=== PATIENT | female | born 1950 | race Caucasian/White ===

== ENCOUNTER 2016-12-21 08:23 | Day surgery (SDC) | payer OTHER ==
[~2016-12-21] VITALS: Ht 165.1 cm; Wt 186.5 kg
[~2016-12-21 08:23] MED LIST: ATARAX10 MG PO; ATIVAN0.5 MG PO; AVASTIN400 MG/16 IJ; AZOR 5/40 MG1 TABLET PO; BYSTOLIC5 MG PO; CALCIUM 500 +1 EACH PO; CALCIUM 600 MG1 EACH PO; CENTRATEX PO; CINNAMON500 MG PO; COLESTID1 GM PO; ERYTHROMYCIN 2% TP; FLEXERIL10 MG PO; GLUCOPHAGE500 MG PO; LEVBID0.375 MG PO; LEVO-T50 MCG PO; LIPITOR40 MG PO; NEXIUM40 MG PO; PERCOCET 10/1 TABLET PO; PERCOCET 5/31 TABLET PO; PRESERVISION A1 EAC2 PO; PROMETHAZINE HC25 M1 PO; PROVENTIL,2.5 MG/3 M IH; SINGULAIR10 MG PO; STIOLTO RESPIMAT4 GM IH; VALTREX1000 MG PO; VENTOLIN HFA18 GM IH; VITAMIN D31000 UNI2 PO
[2016-12-21 09:24] VITALS: BP 144/67
[2016-12-21] MEDS ORDERED: PERCOCET 5/31 TABLET PO (12:18)
[2016-12-21 13:40] VITALS: BP 152/66
[2016-12-21 14:37] VITALS: BP 148/65
[2016-12-21 15:05] VITALS: BP 132/60
== END 2016-12-21 15:17 | disposition home or self-care (01) ==
LOC: SDC 08:23
DX: K66.0 Peritoneal adhesions (postprocedural) (postinfection) (principal); L57.0 Actinic keratosis; L11.8 Other specified acantholytic disorders; R10.13 Epigastric pain; G89.29 Other chronic pain; R11.2 Nausea with vomiting, unspecified; E66.01 Morbid (severe) obesity due to excess calories; Z68.45 Body mass index [BMI] 70 or greater, adult; E11.9 Type 2 diabetes mellitus without complications; K21.9 Gastro-esophageal reflux disease without esophagitis; I10 Essential (primary) hypertension; J45.909 Unspecified asthma, uncomplicated; E07.9 Disorder of thyroid, unspecified; Z88.0 Allergy status to penicillin; Z88.1 Allergy status to other antibiotic agents; Z88.2 Allergy status to sulfonamides; Z88.8 Allergy status to other drugs, medicaments and biological substances; Z91.09 Other allergy status, other than to drugs and biological substances; Z91.030 Bee allergy status; Z82.49 Family history of ischemic heart disease and other diseases of the circulatory system; Z80.6 Family history of leukemia; Z83.49 Family history of other endocrine, nutritional and metabolic diseases
CPT/HCPCS: 88305; J0131; J0330; J0690; J1100; J1170; J2405; J3010; S0020

== ENCOUNTER 2017-10-25 06:52 | Day surgery (SDC) | payer OTHER ==
[~2017-10-25] VITALS: Ht 165.1 cm; Wt 185.9 kg
[~2017-10-25 06:52] MED LIST changes: +ACIPHEX20 MG PO; +ERYGEL 2% GEL60 GM TP; +EXFORGE 5/321 TABLET PO; +FLEXERIL5 MG PO; +SYNTHROID50 MCG PO
[2017-10-25 08:07] VITALS: BP 132/62
[2017-10-25] MEDS ORDERED: NORCO 5/3251 TABLET PO (11:30)
[2017-10-25 13:35] VITALS: BP 140/65
[2017-10-25 14:34] VITALS: BP 112/53
[2017-10-25 15:39] VITALS: BP 135/60
== END 2017-10-25 15:50 | disposition home or self-care (01) ==
LOC: SDC 06:52
PROC: 0DNU4ZZ Release Omentum, Percutaneous Endoscopic Approach (ICD-10-PCS; principal; 2017-10-25)
PROC: 0DNE4ZZ Release Large Intestine, Percutaneous Endoscopic Approach (ICD-10-PCS; principal; 2017-10-25)
PROC: 0DN84ZZ Release Small Intestine, Percutaneous Endoscopic Approach (ICD-10-PCS; principal; 2017-10-25)
DX: R10.9 Unspecified abdominal pain (principal); R11.2 Nausea with vomiting, unspecified; K66.0 Peritoneal adhesions (postprocedural) (postinfection); E66.01 Morbid (severe) obesity due to excess calories; Z68.44 Body mass index [BMI] 60.0-69.9, adult; G89.29 Other chronic pain
CPT/HCPCS: 94640; J0131; J0330; J1100; J1170; J2250; J2405; J2710; J3010; J7643; Q0175